=== PATIENT | female | born 1940 | race Caucasian/White ===

== ENCOUNTER 2018-02-22 22:52 | Inpatient (IN) | payer OTHER ==
[~2018-02-22] VITALS: Ht 149.9 cm; Wt 92.7 kg
[~2018-02-22 22:52] MED LIST: ALPRAZOLAM0.5 MG PO; AMLODIPINE BES2.5 M1 PO; LAC PO; LEVAQUIN750 MG PO; LISINOPRIL40 MG PO; MINOXIDIL2.5 MG PO; NORCO1 TA1 PO
[2018-02-22 23:18] VITALS: Ht 149.9 cm; Wt 92.7 kg
[2018-02-22 23:50] LABS: BASOPHIL % 0.3 % (0-2); PLATELET COUNT 222 x10^3mcL (130-400)
[2018-02-23 00:05] LABS: RED CELL DISTRIBUTION WIDTH 14.9 % (11.5-14.5)
[2018-02-23 00:14] LABS: ALKALINE PHOSPHATASE 98 U/L (46-116); ALT/SGPT 14 U/L (14-59); AST/SGOT 15 U/L (15-37); BILIRUBIN TOTAL 0.3 mg/dL (0.20-1.00); CALCIUM 9.1 mg/dL (8.5-10.1); CARBON DIOXIDE 33.7 mmol/L (21-32); CHLORIDE SERUM 100 mmol/L (98-107); GLUCOSE SERUM 81 mg/dL (74-106); POTASSIUM SERUM 4.8 mmol/L (3.5-5.1); SODIUM SERUM 137 mmol/L (136-145); TOTAL PROTEIN, SERUM 7.3 g/dL (6.4-8.2)
[2018-02-23 00:15] LABS: ALBUMIN 3.1 g/dL (3.4-5.0)
[2018-02-23 00:19] LABS: CREATININE SERUM 8.6 mg/dL (0.6-1.0)
[2018-02-23 02:37] VITALS: BP 150/66
[2018-02-23 05:39] VITALS: BP 132/62
[2018-02-23 06:32] LABS: BASOPHIL % 0.2 % (0-2); PLATELET COUNT 200 x10^3mcL (130-400)
[2018-02-23 06:34] LABS: CARBON DIOXIDE 31.7 mmol/L (21-32); CHLORIDE SERUM 101 mmol/L (98-107); GLUCOSE SERUM 86 mg/dL (74-106); POTASSIUM SERUM 4.9 mmol/L (3.5-5.1); SODIUM SERUM 140 mmol/L (136-145)
[2018-02-23 07:47] LABS: CREATININE SERUM 9.2 mg/dL (0.6-1.0)
[2018-02-23 08:13] VITALS: BP 139/69
[2018-02-23 16:22] VITALS: BP 123/56
[2018-02-23 21:31] VITALS: BP 137/62
[2018-02-24 05:20] VITALS: BP 119/51
[2018-02-24 06:15] LABS: BASOPHIL % 0.5 % (0-2); PLATELET COUNT 226 x10^3mcL (130-400)
[2018-02-24 06:25] LABS: CALCIUM 9.4 mg/dL (8.5-10.1); CARBON DIOXIDE 31.6 mmol/L (21-32); CHLORIDE SERUM 104 mmol/L (98-107); GLUCOSE SERUM 107 mg/dL (74-106); POTASSIUM SERUM 4.4 mmol/L (3.5-5.1); SODIUM SERUM 145 mmol/L (136-145)
[2018-02-24 06:45] LABS: CREATININE SERUM 5.4 mg/dL (0.6-1.0)
[2018-02-24 07:09] LABS: RED CELL DISTRIBUTION WIDTH 14.7 % (11.5-14.5)
[2018-02-24 08:16] VITALS: BP 128/57
[2018-02-24 12:44] VITALS: BP 107/55
[2018-02-24 16:55] VITALS: BP 111/60
[2018-02-24 20:37] VITALS: BP 118/53
[2018-02-25 05:15] VITALS: BP 133/52
[2018-02-25 06:23] LABS: BASOPHIL % 0.2 % (0-2); PLATELET COUNT 211 x10^3mcL (130-400)
[2018-02-25 07:18] LABS: RED CELL DISTRIBUTION WIDTH 14.9 % (11.5-14.5)
[2018-02-25 07:56] VITALS: BP 126/60
[2018-02-25] MEDS ORDERED: PROTONIX40 MG PO (10:12)
[2018-02-25 10:27] VITALS: BP 126/60
== END 2018-02-25 11:20 | disposition home or self-care (01) | DRG 377 ==
LOC: ED 22:52 → MU 02-23 01:27
PROVIDERS: Emergency Medicine; Internal Medicine; Internal Medicine Pulmonary Disease
PROC: 0DJD8ZZ Inspection of Lower Intestinal Tract, Via Natural or Artificial Opening Endoscopic (ICD-10-PCS; 2018-02-24)
PROC: 0DD68ZX Extraction of Stomach, Via Natural or Artificial Opening Endoscopic, Diagnostic (ICD-10-PCS; principal; 2018-02-24 10:00)
PROC: 0DB68ZX Excision of Stomach, Via Natural or Artificial Opening Endoscopic, Diagnostic (ICD-10-PCS; 2018-02-24 10:00)
DX: K57.31 Diverticulosis of large intestine without perforation or abscess with bleeding (principal); N18.6 End stage renal disease; I12.0 Hypertensive chronic kidney disease with stage 5 chronic kidney disease or end stage renal disease; Z68.41 Body mass index [BMI] 40.0-44.9, adult; K29.60 Other gastritis without bleeding; K22.2 Esophageal obstruction; K57.90 Diverticulosis of intestine, part unspecified, without perforation or abscess without bleeding; J45.909 Unspecified asthma, uncomplicated; D63.1 Anemia in chronic kidney disease; Z99.2 Dependence on renal dialysis
CPT/HCPCS: 43235; 45378; A4719; J0885-EC; J1200; J1610; J2250; J2310; J3010; J3490

== ENCOUNTER 2018-10-12 08:31 | Emergency (ER) | payer OTHER ==
[~2018-10-12] VITALS: Ht 149.9 cm; Wt 68.0 kg
[~2018-10-12 08:31] MED LIST changes: +PROTONIX40 MG PO
[2018-10-12 08:33] VITALS: Ht 149.9 cm; Wt 68.0 kg
[2018-10-12 10:50] VITALS: BP 147/56
== END 2018-10-12 10:50 | disposition home or self-care (01) ==
LOC: ED 08:31
DX: S13.4XXA Sprain of ligaments of cervical spine, initial encounter (principal); S20.219A Contusion of unspecified front wall of thorax, initial encounter; I12.0 Hypertensive chronic kidney disease with stage 5 chronic kidney disease or end stage renal disease; N18.6 End stage renal disease; Z99.2 Dependence on renal dialysis; J45.909 Unspecified asthma, uncomplicated; Z88.0 Allergy status to penicillin; V89.2XXA Person injured in unspecified motor-vehicle accident, traffic, initial encounter; Y93.89 Activity, other specified; Y92.410 Unspecified street and highway as the place of occurrence of the external cause; Y99.8 Other external cause status
CPT/HCPCS: Q0092

== ENCOUNTER 2018-12-28 09:31 | Emergency (ER) | payer OTHER ==
[~2018-12-28] VITALS: Ht 160 cm; Wt 90.7 kg
[2018-12-28 09:41] VITALS: Ht 160 cm; Wt 90.7 kg
[2018-12-28 10:29] LABS: BASOPHIL % 0.3 % (0-2); PLATELET COUNT 253 x10^3mcL (130-400)
[2018-12-28 10:54] LABS: ALBUMIN 3.4 g/dL (3.4-5.0); ALKALINE PHOSPHATASE 123 U/L (46-116); ALT/SGPT 16 U/L (14-59); AST/SGOT 12 U/L (15-37); BILIRUBIN TOTAL 0.35 mg/dL (0.20-1.00); CARBON DIOXIDE 27.5 mmol/L (21-32); CHLORIDE SERUM 94 mmol/L (98-107); GLUCOSE SERUM 103 mg/dL (74-106); LIPASE 113 IU/L (73-393); MAGNESIUM 2.5 mg/dL (1.8-2.4); POTASSIUM SERUM 4.2 mmol/L (3.5-5.1); SODIUM SERUM 134 mmol/L (136-145); TOTAL PROTEIN, SERUM 7.8 g/dL (6.4-8.2)
[2018-12-28 10:58] LABS: CREATININE SERUM 7.2 mg/dL (0.6-1.0)
[2018-12-28 18:59] VITALS: BP 158/70
== END 2018-12-28 19:05 | disposition short-term general hospital (02) ==
LOC: ED 09:31
PROVIDERS: Emergency Medicine
DX: I63.9 Cerebral infarction, unspecified (principal); J45.909 Unspecified asthma, uncomplicated; I12.0 Hypertensive chronic kidney disease with stage 5 chronic kidney disease or end stage renal disease; N18.6 End stage renal disease; Z99.2 Dependence on renal dialysis; Z88.0 Allergy status to penicillin
CPT/HCPCS: 36415; 83880; Q0092; Q9967

== ENCOUNTER 2019-06-04 13:03 | Inpatient (IN) | payer OTHER ==
[~2019-06-04] VITALS: Ht 149.9 cm; Wt 81.2 kg
[2019-06-04 13:11] VITALS: Ht 149.9 cm; Wt 81.2 kg
[2019-06-04 14:51] LABS: BASOPHIL % 0.2 % (0-2); PLATELET COUNT 199 x10^3mcL (130-400)
[2019-06-04 14:52] LABS: RED CELL DISTRIBUTION WIDTH 15.3 % (11.5-14.5)
--- NOTE | 2019-06-04 14:58 | NUR ---
PT AMBULATORY TO BED 5 WITH C/O GENERALIZED WEAKNESS X 10DAYS WORSENING OVER THE LAST FEW DAYS; PT HAS CRF, IS A DIALYSIS PT M-W-F; PT IS ABLE TO WALK WITH MIN ASSIST, NO SYNCOPY NOTED, JUST "FEELING TIRED"; PT IS COMPLIANT WITH DIALYSIS; PRELIMINRY ORDERS REC'D; MONITOR
[2019-06-04 15:12] LABS: ALBUMIN 3.4 g/dL (3.4-5.0); ALKALINE PHOSPHATASE 82 U/L (46-116); ALT/SGPT 13 U/L (14-59); AST/SGOT 14 U/L (15-37); BILIRUBIN TOTAL 0.5 mg/dL (0.20-1.00); CALCIUM 9.8 mg/dL (8.5-10.1); CARBON DIOXIDE 27.2 mmol/L (21-32); CHLORIDE SERUM 98 mmol/L (98-107); GLUCOSE SERUM 110 mg/dL (74-106); SODIUM SERUM 140 mmol/L (136-145); TOTAL PROTEIN, SERUM 7.6 g/dL (6.4-8.2)
[2019-06-04 15:16] LABS: POTASSIUM SERUM 6.3 mmol/L (3.5-5.1)
[2019-06-04 15:17] LABS: CREATININE SERUM 15.6 mg/dL (0.6-1.0)
--- NOTE | 2019-06-04 15:50 | NUR ---
PT HAS RTN OF HIGH POTASSIUM LEVEL; ADDITIONAL ORDERS RECD
--- NOTE | 2019-06-04 17:00 | NUR ---
PT MEDICATED FOR HIGH POTASSIUM, PT TO BE ADMITTED FOR FURTHER TREATMENT
--- NOTE | 2019-06-04 17:42 | NUR ---
REPORT GIVEN TO CATHY Dewitt; PT RESTING WELL, INFLUENZA SWAB SENT TO LAB
[2019-06-04 18:13] VITALS: BP 174/64
--- NOTE | 2019-06-04 18:25 | NUR ---
RECEIVED PT FROM ER, PT ADMIT FOR ACUTE CHRONIC RENAL FAILURE, HYPERKALEMIA, PT IS A/O X4, VERBAL RESPONSIVE, DENY ANY HEADACHE OR DIZZINESS AT THIS MOMENT. PT IS ON TELE 2, NSR, DENY ANY CHEST PAIN OR DISCOMFORT, BOWEL SOUND PRESENT ALL 4 QUADRANTS, NO DISTENTION, NO TENDER. PEDAL PULSE PRESENT BOTH FEET, NO EDEMA, IV AT RIGHT FA, NO LEAKING, NO INFILTRATION. AV SHUNT AT LEFT UPPER ARM, B/T PRESENT. PT STATE LAST DIALYSIS WAS YESTERDAY 06/03/19, 1L FLUID PULLED OUT. ALL ADLS ASSIST, ALL NEED MET, CALL LIGHT IN REACH, WILL CONTINUE TO MONITOR.
--- NOTE | 2019-06-04 18:30 | NUR ---
OBTAINED VERBAL CONSENT FROM PATIENT WITH SECOND WITNESS, CATHY ZAMBRANO. PT VERY WEAK AND UNABLE TO SIGN AT THIS TIME. HEMODIALYSIS STARTED AT THIS TIME.
--- NOTE | 2019-06-04 18:50 | NUR ---
PER PATIENT OK TO GIVE INFORMATION TO NOREEN VIEIRA [phone] AND SON FAN GRIFFITH [phone].
--- NOTE | 2019-06-04 18:51 | NUR ---
FAMILY AT BEDSIDE, PT ON HEMODIALYSIS AT THIS TIME. WILL CONTINUE TO MONITOR AND ENDORSE CARE TO TAPPER SHANK.
--- NOTE | 2019-06-04 19:18 | NUR ---
HD NURSE AT BEDSIDE AND ATTEMPTING TO ACCESS THE AV SHUNT TO ALISHA BUT THE AV SHUNT IS NOT WORKING AT THIS TIME.
--- NOTE | 2019-06-04 19:37 | NUR ---
SPOKE WITH DR PAULSON, MADE HIM AWARE OF PT UNABLE TO HAVE HD TONIGHT DUE TO AV SHUNT IS NOT WORKING, TELEPHONE ORDER RECEIVED FOR- GIVE LOKELMA 10GM PO X 1 FOR TONIGHT AND HOLD MANNITOL AND VANCOMYCIN FOR NOW. CALLED DR BURNS AND DR BURNS ALSO MADE AWARE OF ABOVE SITUATION.
--- NOTE | 2019-06-04 20:00 | NUR ---
PT SEEN, RESTING IN BED, LETHARGIC BUT EASILY AROUSALE, AAO X 3 WITH MOSTLY [place] SPEAKING, DENIES HEADACHE OR DIZZINESS, BREATHING EVEN AND UNLABORED, LUNG SOUNDS CLEAR BUT DIMINISHED AT BASE, ON O2 2L VIA NC WITH NO RESP DISTRESS NOTED, ON TELE#2 NSR, DENIES CHEST PAIN, SL TO RFA, PULSES PALPABLE, NO EDEMA NOTED, GENERALIZED WEAKNESS BUT ABLE TO MOVE ALL EXT AND REPOSITION HERSELF IN BED, ABD OBESE WITH ACTIVE BS, NO BM AT THIS TIME, DENIES ABD PAIN, HD PT, ALISHA WITH AV SHUNT, (+) BRUIT AND THRIL, STILL VOIDS AT TIMES. BED ALARM ON, NO DISTRESS NOTED, WILL KEEP TO MONITOR.
--- NOTE | 2019-06-04 20:05 | NUR ---
DC'D BY REGISTRY AT 0960
[2019-06-04 20:53] VITALS: BP 120/53
--- NOTE | 2019-06-05 05:37 | NUR ---
PT ASLEEP BUT EASILY AROUSABLE, SLEPT MOST OF NIGHT, PT IS MORE AWAKE THAN BEGINNING OF THE SHIFT, SL TO RFA, BREATHING EVEN AND UNLABORED ON O2 2L VIA NC, ABLE TO REPOSITION HERSELF IN BED, BED ALARM ON, NO DISTRESS NOTED, WILL KEEP TO MONITOR.
[2019-06-05 05:58] VITALS: BP 122/68
[2019-06-05 06:52] LABS: BASOPHIL % 0.3 % (0-2); PLATELET COUNT 154 x10^3mcL (130-400)
[2019-06-05 07:08] LABS: RED CELL DISTRIBUTION WIDTH 15.9 % (11.5-14.5)
--- NOTE | 2019-06-05 07:10 | NUR ---
RECEIVED PATIENT AWAKE/ALERT NO C/O PAIN. C/O SHAKY. NO DISTRESS NOTED. TELE #2 SR W/ HR 77. IV TO RFA INTACT AND SL NOTED. KEEP PATIENT NPO POSSIBLE DIALYSIS CATHETER PLACEMENT. PER REPORT ALISHA SHUNT IS NOT WORKING. CALL LIGHT WITHIN REACH.
--- NOTE | 2019-06-05 07:22 | NUR ---
DR BURNS IS HERE, ALL UPDATES GIVEN, NEW ORDER RECEIVED FROM DR BURNS THAT PLEASE KEEP PT NPO.
--- NOTE | 2019-06-05 07:23 | NUR ---
BEDSIDE HANDOFF REPORT GIVEN TO HERBIE-RN, ALL QUESTIONS ANSWERED AND CONCERNS ADDRESSED.
[2019-06-05 07:31] LABS: CARBON DIOXIDE 23.5 mmol/L (21-32); CHLORIDE SERUM 100 mmol/L (98-107); GLUCOSE SERUM 79 mg/dL (74-106); SODIUM SERUM 140 mmol/L (136-145)
--- NOTE | 2019-06-05 07:42 | NUR ---
CALLED DR. BURNS FOR PATIENT'S STATUS, SWITCH TO INPATIENT PER DR. BURNS.
[2019-06-05 07:44] LABS: POTASSIUM SERUM 6.1 mmol/L (3.5-5.1)
[2019-06-05 07:46] LABS: ALBUMIN 3.1 g/dL (3.4-5.0); CREATININE SERUM 16.4 mg/dL (0.6-1.0)
[2019-06-05 08:32] VITALS: BP 138/43
--- NOTE | 2019-06-05 09:23 | NUR ---
PATIENT RESTING IN BED DR. CISNEROS AT BEDSIDE WITH RN AND SARA WAYNE ASSIST TRANSLATE CITIZEN OF [place] AND [place] FOR DR. CISNEROS. DR. CISNEROS EXPLAINED TO PATIENT OF BRENDA CATHETER PLACEMENT W/ US GUIDED, PATIENT VERBALIZE UNDERSTAND RISKS AND SIGNED. TECH AT BEDSIDE AND PREPS KITS AT BEDSIDE. PROCEDURE PERFORM AT BEDSIDE.
[2019-06-05 09:28] LABS: ALKALINE PHOSPHATASE 72 U/L (46-116); ALT/SGPT 11 U/L (14-59); AST/SGOT 12 U/L (15-37); BILIRUBIN TOTAL 0.5 mg/dL (0.20-1.00); TOTAL PROTEIN, SERUM 6.9 g/dL (6.4-8.2)
--- NOTE | 2019-06-05 09:54 | NUR ---
PATIENT TOLERATED PROCEDURE BRENDA PLACEMENT TO RT NECK. WELL, NO BLEEDING NOTED POST PROCEDURE. REPOSITION FOR COMFORT. COVER W/ BLANKET PATIENT SHAKING. CALL LIGHT WITHIN REACH.
--- NOTE | 2019-06-05 11:06 | NUR ---
TECH AT BEDSIDE PERFORM CXR TO VERIFIED BRENDA PLACEMENT. HEPARIN SQ AND LOKEMA PO ADMINISTERED, PATIENT TOLERATED. K 6.1 CONT TO MONITOR.
--- NOTE | 2019-06-05 11:54 | NUR ---
PATIENT C/O RT NECK PAIN 01/26 MEDICATED W/ NORCO PO AND PATIENT TOLERATED WELL. INFORM PATIENT NPO FOR CT ABD/PELVIS, PATIENT WANT TO EAT STATED HUNGRY. NEEDS MET, OWNER AT BEDSIDE ASSISTING PATIENT.
--- NOTE | 2019-06-05 11:57 | NUR ---
DR. CISNEROS CALL BACK READ CXR RESULT TO SURGEON, SHOWS RIGHT IJ CATHETER IN GOOD POSITION, NO PNEUMOTHORAX AND PER SURGEON OKAY TO USE.
--- NOTE | 2019-06-05 12:03 | NUR ---
CALL ZOHREH INFORM RIGHT IJ BRENDA SEALS IS OKAY TO USE.
--- NOTE | 2019-06-05 12:31 | NUR ---
PATIENT RESTING IN BED NO DISTRESS NOTED, SISTER AND NIECE AT BEDSIDE VISITING PATIENT. CALL RADIOLOGY QUESTION ABOUT CXR LT AXILLARY NODE DISSECTION, PER PATIENT NO LT BREAST SURGERY IN PAST. EXAM PATIENT HAS BILATERAL BREAST INTACT NOTED. CONT TO MONITOR.
[2019-06-05 13:11] VITALS: BP 164/76
--- NOTE | 2019-06-05 13:34 | NUR ---
NEW IV IMNSERTED TO ANA LUISA #20G BY JUAN MANUEL PRUETT FOR CT SCAN W/ IV CONTRAST. GOOD BLOOD RETURN AND SECURED W/ DRESSING CDI. PATIENT RESTING IN BED, FAMILY MEMBERS REMAIN AT BEDSIDE.
--- NOTE | 2019-06-05 15:13 | NUR ---
PATIENT OFF FLOOR FOR CT VAI BED.
--- NOTE | 2019-06-05 15:54 | NUR ---
DIALYSIS NURSE ZOHREH AT BEDSIDE STARTED DIALYZE PATIENT, T 99.0 BP 154/66, MAP 82, HR 80, CONT TO MONITOR.
--- NOTE | 2019-06-05 16:36 | NUR ---
PATIENT SLEEPING AROUSABLE BP 96/48, HR 77 DURING DIALYSIS, MANNITOL WAS GIVEN BY DIALYSIS NURSE BRUNER X 2 BOTTLE TOTAL 12.5GM (50ML). PATIENT IS DIAPHORETIC CHECK BS 108 CONT TO MONITOR.
[2019-06-05 17:33] VITALS: BP 104/56
--- NOTE | 2019-06-05 17:33 | NUR ---
PATIENT AWAKE/ALERT DIALYSIS COMPLETED, REMOVED 400ML AND TOLERATED. BP 111/54, MAP 73, HR 81, SAT 93% ON 2LNC. CONT TO MONITOR. WILL ASSIST PATIENT UP FOR DINNER. CALL LIGHT WITHIN REACH.
--- NOTE | 2019-06-05 18:06 | NUR ---
PATIENT EATING AT THIS TIME, VANCOMYCIN IVPB INFUSING TO ANA LUISA, PATENT. CALL LIGHT WITHIN REACH.
--- NOTE | 2019-06-05 18:53 | NUR ---
PATIENT CALLING AND REQUEST FOR BEDPAN, ASSIST PATIENT ON BEDPAN MAX ASSIST. CALL LIGHT WITHIN REACH TELL PATIENT TO CALL WHEN DONE.
--- NOTE | 2019-06-05 19:30 | NUR ---
RECEIVED PT FROM AM NURSE HERBIE RN. PT LAYING DOWN IN BED WITH FAMILY AT BEDSIDE. PT AAOX4, ABLE TO FOLLOW COMMANDS AND MAKE NEEDS KNOWN. TELE#2 READING SR AT 84, DENIES CP/PRESSURE AT THIS TIME. PALPABLE PULSES TO ALL EXTREMETIES, NO EDEMA NOTED. LUNG SOUNDS DIMINISHED TO BASES. BREATHING EVEN AND UNLABORED ON 2L NC. ABD SOFT AND ROUND, ACTIVE BS X4 QUAD. DENIES N/V/D. OLIGURIC, ON HD. LAST HD TODAY 06/05 WITH 400CC OUTPUT. JEN GUTIERREZ WITH DRESSING CDI. AV SHUNT TO ALISHA NOT WORKING AT THIS TIME. GENERALIZED WEAKNESS, AMB WITH ASSIST. PT C/O TREMORS TO BUE. IV TO RFA AND ANA LUISA PATENT AND INTACT. SITE FREE FROM REDNESS AND SWELLING. BED AT LOWEST SETTING. SIDE RAILS X2 UP. CALL LIGHT WITHING REACH. WILL CONT TO MONITOR.
[2019-06-05 21:02] VITALS: BP 146/65
[2019-06-06 05:40] VITALS: BP 150/68
--- NOTE | 2019-06-06 06:27 | NUR ---
PT LAYING DOWN IN BED COMFORTABLY, BREATHING EVEN AND UNLABORED ON 2L NC. BREATHING EVEN AND UNLABORED. NO ACUTE RESP DISTRESS NOTED. BED AT LOWEST SETTING. SIDE RAILS X2 UP. CALL LIGHT WITHING REACH. WILL CONT TO MONITOR.
--- NOTE | 2019-06-06 06:29 | NUR ---
PT SLEPT AT INTERVALS THROUGHOUT THE NIGHT, BREATHING EVEN AND UNLABORED ON 2L NC. NO SIGNIFICANT CHANGES DURING SHIFT. CONT TO C/O TREMORS TO BUE. ALL NEEDS ASSESSED AND ATTENDED TO. BED AT LOWEST SETTING. SIDE RAILS X2 UP. CALL LIGHT WITHING REACH. WILL ENDORSE CARE TO AM NURSE.
[2019-06-06 06:30] LABS: BASOPHIL % 0.1 % (0-2); PLATELET COUNT 144 x10^3mcL (130-400)
[2019-06-06 06:39] LABS: ALKALINE PHOSPHATASE 63 U/L (46-116); ALT/SGPT 15 U/L (14-59); AST/SGOT 12 U/L (15-37); BILIRUBIN TOTAL 0.37 mg/dL (0.20-1.00); CALCIUM 8.9 mg/dL (8.5-10.1); CARBON DIOXIDE 25.7 mmol/L (21-32); CHLORIDE SERUM 98 mmol/L (98-107); GLUCOSE SERUM 82 mg/dL (74-106); PHOSPHOROUS 6.8 mg/dL (2.5-4.9); SODIUM SERUM 137 mmol/L (136-145); TOTAL PROTEIN, SERUM 6.2 g/dL (6.4-8.2)
[2019-06-06 06:40] LABS: ALBUMIN 2.8 g/dL (3.4-5.0)
[2019-06-06 06:51] LABS: RED CELL DISTRIBUTION WIDTH 15.6 % (11.5-14.5)
--- NOTE | 2019-06-06 07:15 | NUR ---
RECEIVED PATIENT AWAKE/ALERT IN BED, NO DISTRESS NOTED, PATIENT STATED FEEL A LITTLE BETTER. NO C/O PAIN. RIJ BRENDA DRESSING CDI, ANA LUISA/RFA IV INTACT AND SL, NO SWELLING NOTED. TELE #2 SR W/ HR 77 NOTED. POC DISCUSS. CALL LIGHT WITHIN REACH.
[2019-06-06 08:32] VITALS: BP 151/54
--- NOTE | 2019-06-06 09:06 | NUR ---
PATIENT ABLE TO BOOST HER SELF UP IN BED, ELEVATE HOB. ALL PO MEDS AND NORCO PO ADMINISTERED PATIENT TOLERATED. DTR REMAIN AT BEDSIDE. DR. BURNS SEEN PATIENT AND DISCUSS POC, DIALYSIS TODAY, PT EVAL. PLANNING DISCHARGE AFTER HD. F/U AFTER HOLIDAY. CALL LIGHT WITHIN REACH.
--- NOTE | 2019-06-06 12:17 | NUR ---
PATIENT RESTING IN BED, NO DISTRESS NOTED. FAMILY MEMBER AT BEDSIDE. [facility] NURSE AT BEDSIDE WILL START DIALYZE PATIENT SOON. NEEDS MET. CALL LIGHT WITHIN REACH.
--- NOTE | 2019-06-06 13:09 | NUR ---
PER [facility] STOP DUE TO PATIENT CAN NOT TOLERATED AND PER DR. KHURRAM COLLIER STOP DIALYSIS PATIENT CAN GO TO OUTPATIENT DIALYSIS TOMORROW. PATIENT AGREED. CONT TO MONITOR
[2019-06-06 13:20] VITALS: BP 184/75
[2019-06-06 15:30] VITALS: BP 158/78
--- NOTE | 2019-06-06 16:50 | NUR ---
PATIENT ALREADY DRESS SAT IN CHAIR, DISCHARGE INSTRUCTION AND MEDICATION FOR KEFLEX AND CLINDAMYCIN PO EXPLAINED TO PATIENT. INSTRUCT TO CONTINUE DIALYSIS SCHEDULE TOMGILDAW AND F/U APPT ON 06/17/19 AT 09:[address] BURNS TO DTR. 2 IV SITE WAS REMOVED BY [facility]. TELE #2 GAVE TO RAMU RN OR LPN. ASSISTANT REFINERY OPERATOR ASSIST WHEEL PATIENT OUT WITH ALL BELONGINGS.
== END 2019-06-06 16:40 | disposition home or self-care (01) | DRG 314 ==
LOC: ED 13:03 → DU 16:48
PROVIDERS: Internal Medicine Nephrology; ADMIT Internal Medicine
PROC: 05HM33Z Insertion of Infusion Device into Right Internal Jugular Vein, Percutaneous Approach (ICD-10-PCS; principal; 2019-06-05)
DX: T82.868A Thrombosis due to vascular prosthetic devices, implants and grafts, initial encounter (principal); N18.6 End stage renal disease; I12.0 Hypertensive chronic kidney disease with stage 5 chronic kidney disease or end stage renal disease; B34.9 Viral infection, unspecified; J45.909 Unspecified asthma, uncomplicated; E83.39 Other disorders of phosphorus metabolism; E87.5 Hyperkalemia; N28.89 Other specified disorders of kidney and ureter; E66.9 Obesity, unspecified; Z68.35 Body mass index [BMI] 35.0-35.9, adult; Z99.2 Dependence on renal dialysis; Y84.1 Kidney dialysis as the cause of abnormal reaction of the patient, or of later complication, without mention of misadventure at the time of the procedure; Y92.009 Unspecified place in unspecified non-institutional (private) residence as the place of occurrence of the external cause
CPT/HCPCS: 36600; 82962; 87804; G0378; J0610; J1644; J1815; J2150; J3370; J3490; J7030; J7050; Q0092; Q9967

== ENCOUNTER 2019-08-15 18:38 | Emergency (ER) | payer OTHER ==
[~2019-08-15] VITALS: Ht 149.9 cm; Wt 65.3 kg
[2019-08-15 18:44] VITALS: Ht 149.9 cm; Wt 65.3 kg
[2019-08-15 21:48] VITALS: BP 135/61
== END 2019-08-15 21:48 | disposition home or self-care (01) ==
LOC: ED 18:38
DX: S01.01XA Laceration without foreign body of scalp, initial encounter (principal); I10 Essential (primary) hypertension; J45.909 Unspecified asthma, uncomplicated; Z88.0 Allergy status to penicillin; W01.0XXA Fall on same level from slipping, tripping and stumbling without subsequent striking against object, initial encounter; Y93.89 Activity, other specified; Y92.89 Other specified places as the place of occurrence of the external cause; Y99.8 Other external cause status
CPT/HCPCS: J2001